=== PATIENT | male | born 1940 | race Hispanic/Latino ===

== ENCOUNTER 2021-06-19 19:27 | Emergency (ER) | payer MEDICARE ==
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
[2021-06-19 21:31] LABS: Basophils # (Auto) 0.1 K/mm3 (0.0-0.1); Basophils % (Auto) 0.4 % (0.0-1.8); Eosinophils % (Auto) 0.4 % (0.0-4.3); Hematocrit 43.1 % (35.5-45.6); Hemoglobin 14.4 gm/dl (11.8-15.2); Lymphocytes # (Auto) 0.5 K/mm3 (1.2-5.4); Lymphocytes % (Auto) 4.2 % (13.4-35.0); Mean Corpuscular HGB Conc 33 % (32-34); Mean Corpuscular Volume 89 fl (84-94); Monocytes # (Auto) 0.7 K/mm3 (0.0-0.8); Monocytes % (Auto) 6.4 % (0.0-7.3); Platelet Count 225 K/mm3 (140-440); Red Blood Count 4.85 M/mm3 (3.65-5.03); Red Cell Distribution Width 14.4 % (13.2-15.2)
[2021-06-19 21:41] LABS: Albumin 4.6 g/dL (3.9-5); Calcium 9.6 mg/dL (8.4-10.2)
[2021-06-20 00:22] LABS: Bilirubin,Urine NEG (Negative); Blood,Urine NEG (Negative); Color,Urine Yellow (Yellow); Urobilinogen,Urine < 2.0 mg/dL (<2.0)
[2021-06-20 00:31] LABS: Amphetamine Screen,Urine PRESUMPTIVE NEGATIVE; Benzodiazepines Screen,Urine PRESUMPTIVE NEGATIVE; Cannabinoid Screen,Urine PRESUMPTIVE NEGATIVE; Cocaine Screen,Urine PRESUMPTIVE NEGATIVE; Methadone Screen,Urine PRESUMPTIVE NEGATIVE; Opiate Screen,Urine PRESUMPTIVE NEGATIVE
[2021-06-20 04:04] VITALS: BP 160/61
--- NOTE | 2021-06-20 09:04 | Emergency Department Report ---
Blank Doc - Documentation Documentation: There were no events throughout the course of the night. Patient has been res ting. Psychiatric disposition is pending. Labs have been reviewed.
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
== END 2021-06-20 13:01 | disposition home or self-care (01) ==
LOC: ED 19:27
DX: R45.1 Restlessness and agitation (principal); I10 Essential (primary) hypertension; R90.82 White matter disease, unspecified; Z20.822 Contact with and (suspected) exposure to COVID-19
CPT/HCPCS: 36415; 70450; 73090; 80053; 80307; 81001; 85025; 99285; U0003; 80320; G0480